=== PATIENT | female | born 1990 | race Caucasian/White ===

== ENCOUNTER 2017-11-01 19:40 | Emergency (ER) | payer MEDICAID ==
[~2017-11-01] VITALS: Ht 165.1 cm; Wt 82.4 kg
[~2017-11-01 19:40] MED LIST: HYDR-565 PO; NO HOME MEDS; PRENATAL VITAMINS
[2017-11-01 19:57] VITALS: BP 115/79
[2017-11-01] MEDS ORDERED: NAPR-56 PO (20:08)
[2017-11-01] MEDS ORDERED: PENI250T2 PO (20:08)
== END 2017-11-01 20:14 | disposition home or self-care (01) ==
LOC: ER 19:41
DX: K08.89 Other specified disorders of teeth and supporting structures (principal); Z90.49 Acquired absence of other specified parts of digestive tract
CPT/HCPCS: 99283

== ENCOUNTER 2017-12-28 09:44 | Emergency (ER) | payer MEDICAID ==
[~2017-12-28] VITALS: Ht 165.1 cm; Wt 84.0 kg
[2017-12-28] MEDS ORDERED: CHLO473M3 PO (10:19)
[2017-12-28] MEDS ORDERED: HYDR-569 PO (10:19)
[2017-12-28] MEDS ORDERED: AMOX500C2 PO (10:19)
[2017-12-28 10:31] VITALS: BP 114/72
== END 2017-12-28 10:32 | disposition home or self-care (01) ==
LOC: ER 09:45
DX: K04.7 Periapical abscess without sinus (principal); Z90.49 Acquired absence of other specified parts of digestive tract
CPT/HCPCS: 99283

== ENCOUNTER 2018-01-07 08:20 | Emergency (ER) | payer MEDICAID ==
[~2018-01-07] VITALS: Ht 165.1 cm; Wt 85.0 kg
[~2018-01-07 08:20] MED LIST changes: +CHLO473M3 PO; +HYDR-569 PO
[2018-01-07 08:27] VITALS: BP 121/61
[2018-01-07] MEDS ORDERED: IBUP-1986 PO (10:07)
[2018-01-07] MEDS ORDERED: PENI500T2 PO (10:07)
[2018-01-07] MEDS ORDERED: ANBESOL TP (10:07)
== END 2018-01-07 10:17 | disposition home or self-care (01) ==
LOC: ER 08:21
DX: K02.9 Dental caries, unspecified (principal); K04.7 Periapical abscess without sinus; Z90.49 Acquired absence of other specified parts of digestive tract; Z79.899 Other long term (current) drug therapy
CPT/HCPCS: 99283

== ENCOUNTER 2019-03-01 20:05 | Emergency (ER) | payer MEDICAID ==
[~2019-03-01] VITALS: Ht 165.1 cm; Wt 90.9 kg
[~2019-03-01 20:05] MED LIST changes: +CLOT15CR10 TP; +HYDR-4353 PO; +HYDR-4383 PO; -HYDR-565 PO; -HYDR-569 PO; +IBUP-1986 PO
[2019-03-01 20:20] VITALS: BP 129/78
[2019-03-01] MEDS ORDERED: NAPR-56 PO (21:49)
[2019-03-01] MEDS ORDERED: PENI250T2 PO (21:49)
== END 2019-03-01 22:23 | disposition home or self-care (01) ==
LOC: ER 20:05
DX: K08.89 Other specified disorders of teeth and supporting structures (principal); K03.81 Cracked tooth; R09.81 Nasal congestion; Z90.49 Acquired absence of other specified parts of digestive tract; Z98.890 Other specified postprocedural states
CPT/HCPCS: 99283

== ENCOUNTER 2019-08-20 20:43 | Emergency (ER) | payer MEDICAID, OTHER ==
[~2019-08-20] VITALS: Ht 165.1 cm; Wt 87.8 kg
[2019-08-20 20:52] VITALS: BP 139/65
[2019-08-20] MEDS ORDERED: AMOX-580 PO (22:48)
[2019-08-20] MEDS ORDERED: L. R1CAP4 PO (22:48)
[2019-08-20] MEDS ORDERED: CHLO473M3 PO (22:48)
== END 2019-08-20 23:02 | disposition home or self-care (01) ==
LOC: ER 20:44
DX: K04.7 Periapical abscess without sinus (principal); Z90.49 Acquired absence of other specified parts of digestive tract; Z79.899 Other long term (current) drug therapy
CPT/HCPCS: 99283

== ENCOUNTER 2021-06-06 08:43 | Emergency (ER) | payer MEDICAID ==
[~2021-06-06] VITALS: Ht 165.1 cm; Wt 97.2 kg
[~2021-06-06 08:43] MED LIST changes: +L. R1CAP4 PO
[2021-06-06 09:05] VITALS: BP 131/79
[2021-06-06 09:59] LABS: BASOPHILS % (AUTO) 0.2 % (0-1); EOSINOPHILS % (AUTO) 1.5 % (0-6); HEMATOCRIT 40.1 % (35.0-45.0); HEMOGLOBIN 13.4 g/dl (12.0-16.0); LYMPHOCYTES # (AUTO) 0.6 X10'3 (1.1-4.8); MEAN CORPUSCULAR HEMOGLOBIN 28.9 PG (27.0-31.0); MEAN CORPUSCULAR HGB CONC 33.5 g/dL (33.0-36.5); MEAN CORPUSCULAR VOLUME 86.4 FL (78-98); MEAN PLATELET VOLUME 7.7 FL (7.4-10.4); MONOCYTES # (AUTO) 0.6 X10'3 (0-0.9); MONOCYTES % (AUTO) 19.6 % (2-12); NEUTROPHILS % (AUTO) 61.7 % (42-75); PLATELET COUNT 215 X10'3 (140-440); RED BLOOD COUNT 4.64 X10'6 (4.20-5.60); RED CELL DISTRIBUTION WIDTH 14.7 % (11.5-14.5); WHITE BLOOD COUNT 3.3 X10'3 (4.5-11.0)
[2021-06-06 10:02] LABS: CLARITY,URINE SLIGHTLY CLOUDY (Clear); COLOR,URINE YELLOW (Yellow); GLUCOSE, URINE NEGATIVE (Neg); KETONES,URINE NEGATIVE (Neg); LEUKOCYTE ESTERASE ,URINE TRACE (Neg); NITRITES, URINE NEGATIVE (Neg); OCCULT BLOOD,URINE NEGATIVE (Neg); PROTEIN,URINE NEGATIVE (Neg); UROBILINOGEN,URINE 0.2 E.U/dL (0.2-1.0)
[2021-06-06 10:04] LABS: UA COLLECTION TYPE NON-SPECIFIED
[2021-06-06 10:19] LABS: ALANINE AMINOTRANSFERASE 71 U/L (12-78); ALBUMIN 3.9 G/DL (3.4-5.0); ALBUMIN/GLOBULIN RATIO 1.1 (1.1-1.5); ALKALINE PHOSPHATASE 82 IU/L (46-116); ANION GAP 8 (8-16); ASPARTATE AMINO TRANSFERASE 36 U/L (10-37); BILIRUBIN,TOTAL 0.3 MG/DL (0.1-1.0); BLOOD UREA NITROGEN 13 MG/DL (7-18); BUN/CREATININE RATIO 17.1 (6.6-38.0); CALCIUM 8.6 MG/DL (8.5-10.1); CHLORIDE 104 MMOL/L (99-107); CREATININE 0.76 MG/DL (0.40-0.90); GLUCOSE 78 MG/DL (70-104); POTASSIUM 4.3 MMOL/L (3.5-5.1); SODIUM 140 MMOL/L (135-145); TOTAL CARBON DIOXIDE 27.6 MMOL/L (24-32); TOTAL PROTEIN 7.5 G/DL (6.4-8.2); eGFR 88 ML/MIN
[2021-06-06 10:23] LABS: BACTERIA,URINE 2+ /HPF (Neg); RBC,URINE NONE SEEN /HPF (0-2); SQUAMOUS EPITHELIAL CELL,UR MANY /LPF (FEW); WBC,URINE 0-4 /HPF (0-4)
[2021-06-06 10:37] LABS: TOTAL CELLS COUNTED 100
[2021-06-06 10:38] LABS: LARGE PLATELETS FEW; PLATELET ESTIMATE NORMAL
== END 2021-06-07 07:18 | disposition home or self-care (01) ==
LOC: ER 15:12
DX: T81.9XXA Unspecified complication of procedure, initial encounter (principal); R50.9 Fever, unspecified; Z90.49 Acquired absence of other specified parts of digestive tract; Z98.51 Tubal ligation status; Z79.2 Long term (current) use of antibiotics; Z79.899 Other long term (current) drug therapy; X58.XXXA Exposure to other specified factors, initial encounter; Y93.89 Activity, other specified; Y92.89 Other specified places as the place of occurrence of the external cause; Y99.8 Other external cause status
CPT/HCPCS: 80053; 81001; 85007; 85025; 99283

== ENCOUNTER 2024-10-22 13:15 | Emergency (ER) | payer MEDICAID ==
[~2024-10-22] VITALS: Ht 165.1 cm; Wt 117.8 kg
[~2024-10-22 13:15] MED LIST changes: +CHLO473M13 PO; -CHLO473M3 PO
[2024-10-22] MEDS: LIDOcaine 1% W/epiNEPHrine 1:100,000 20ml vial SQ ONE (16:39)
[2024-10-22] MEDS ORDERED: ketorolac trometh 30MG/ML vial 30 MG/ML VIAL IV ONE (16:40)
[2024-10-22] MEDS: ketorolac trometh 30MG/ML vial 30 MG/ML VIAL IM ONE (16:50)
[2024-10-22] MEDS: HYDROcodone/acetaminophen 10/325mg tab PO ONE (16:51)
[2024-10-22] MEDS: TETanus/Pertussis (Acell)/Diphther VAC/PF (Tdap-Adult) 0.5ml syringe IMVAC ONE (16:51)
[2024-10-22] MEDS ORDERED: HYDR-3965 PO (16:59)
[2024-10-22] MEDS ORDERED: AMOX-115 PO (16:59)
[2024-10-22 17:41] VITALS: TEMP 98.3
[2024-10-22 17:46] VITALS: BP 151/85; PULSE 91; RESP 18; O2SAT 98
[2024-10-23] MEDS ORDERED: HYDR-3965 PO (11:31)
== END 2024-10-22 17:48 | disposition home or self-care (01) ==
LOC: ER 13:15
DX: S61.431A Puncture wound without foreign body of right hand, initial encounter (principal); S51.831A Puncture wound without foreign body of right forearm, initial encounter; Z90.49 Acquired absence of other specified parts of digestive tract; Z98.51 Tubal ligation status; W54.0XXA Bitten by dog, initial encounter; Y93.89 Activity, other specified; Y92.89 Other specified places as the place of occurrence of the external cause; Y99.8 Other external cause status
CPT/HCPCS: 73090; 73130; 90471; 90715; 96372; 99284; J1885; J3490; J7030; A6222; A6258; A6446; A6449